=== PATIENT | female | born 1965 | race Caucasian/White ===

== ENCOUNTER 2017-04-17 03:48 | Emergency (ER) | payer OTHER ==
[2017-04-17 03:57] VITALS: BP 113/62; PULSE 60; TEMP 97.7; BMI 20.9
--- NOTE | 2017-04-17 04:01 | PDOC ---
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 Pain had been particularly intense since 4pm. SHortly before arrival, felt relief of pain and "snap, crackle, pop" noises. No fever. Has been taking APAP and motrin for pain. fhx: noncontrib ros: reviewed and otherwise negative o/E NAD r ear: serosanguinous fluid pooling, incomplete visualization of TM, erythema of canal wall L ear-contracted T< no adenopathy a/p hx and physical findings most consistent with perfed TM abx prophxlaxis ENT fu 04/17/17 04:22 Past History - Past Medical History Allergies/Adverse Reactions: Allergies Allergy/AdvReac Type Severity Reaction Status Date / Time No Known Allergies Allergy Verified 04/17/17 03:49 Home Medications: Ambulatory Orders Ofloxacin Otic [Floxin Otic -] 2 drop AD BID #50 drops 04/17/17 COPD: No - Suicide/Smoking/Psychosocial Hx Smoking History: Never smoked Have you smoked in the past 12 months: No Information on smoking cessation initiated: No Hx Alcohol Use: No Drug/Substance Use Hx: No Substance Use Type: None *Physical Exam - Vital Signs Last Vital Signs Temp Pulse Resp BP Pulse Ox 97.7 F 60 16 113/62 100 04/17/17 03:50 04/17/17 03:50 04/17/17 03:50 04/17/17 03:50 04/17/17 03:50 *DC/Admit/Observation/Transfer Diagnosis at time of Disposition: Perforation of tympanic membrane Qualifiers: Laterality: right Qualified Code(s): H72.91 - Unspecified perforation of tympanic membrane, right ear - Discharge Dispostion Disposition: HOME Condition at time of disposition: Stable - Prescriptions Prescriptions: Ofloxacin Otic [Floxin Otic -] 2 drop AD BID #50 drops - Referrals - Patient Instructions Printed Discharge Instructions: DI for Tympanic Membrane Perforation-Adult Additional Instructions: Please followup with ENT - Post Discharge Activity
== END 2017-04-17 04:06 | disposition home or self-care (01) ==
LOC: FER 03:48
DX: H72.91 Unspecified perforation of tympanic membrane, right ear (principal); Z85.9 Personal history of malignant neoplasm, unspecified
CPT/HCPCS: 99281-25